=== PATIENT | female | born 1955 | race Caucasian/White ===

== ENCOUNTER 2018-01-28 14:37 | Inpatient (IN) | payer OTHER ==
[2018-01-28] MEDS ORDERED: BISACODYL 10 MG SUPP PR (16:30)
[2018-01-28] MEDS ORDERED: LACTULOSE 30ML CUP PO (16:30)
[2018-01-28] MEDS ORDERED: DEXTROSE 50% 50 ML SYRINGE IV ×2 (16:30)
[2018-01-28] MEDS ORDERED: MAGNESIUM HYDROXIDE 30ML CUP PO (16:30)
[2018-01-28] MEDS ORDERED: GLUCOSE GEL 15 GRAM TUBE BUCCAL (16:30)
[2018-01-28] MEDS ORDERED: ACETAMINOPHEN 325 MG TAB PO (16:30)
[2018-01-28] MEDS ORDERED: GLUCOSE GEL 15 GRAM TUBE PO ×2 (16:30)
[2018-01-28] MEDS ORDERED: GLUCAGON 1 MG INJ IM (16:30)
[2018-01-28 16:58] LABS: ADD UMIC YES; UR ASCORBIC ACID NEGATIVE (NEGATIVE); UR BILIRUBIN (Dip) NEGATIVE (NEGATIVE); UR BLOOD (Dip) 1+ mg/dL (NEGATIVE); UR CLARITY SLIGHTLY CLOUDY (CLEAR); UR COLOR YELLOW (YELLOW); UR GLUCOSE (Dip) NEGATIVE (NEGATIVE); UR KETONES (Dip) NEGATIVE (NEGATIVE); UR LEUKOCYTE ESTERASE (Dip) NEGATIVE Leu/ul (NEGATIVE); UR NITRITE (Dip) NEGATIVE (NEGATIVE); UR RBC 1 /HPF (0-5); UR SPECIFIC GRAVITY (Dip) 1.021 (1.003-1.030); UR SQUAMOUS EPITHELIAL CELL FEW /HPF (FEW); UR TOTAL PROTEIN (Dip) NEGATIVE (NEGATIVE); UR UROBILINOGEN (Dip) NEGATIVE (NEGATIVE); UR WBC 4 /HPF (0-5)
[2018-01-28] MEDS: Insulin NOVOLOG SS MILD Algorithm (SS with meals and bedtime) SC ×2 (17:05→20:58)
[2018-01-28] MEDS ORDERED: DIPHENHYDRAMINE 1%/ZINC 28.3 GM CR TOP ×2 (18:00)
[2018-01-28] MEDS: glipiZIDE 5 MG TAB PO (18:02)
[2018-01-28] MEDS: ATORVASTATIN 40 MG TAB PO (20:55)
[2018-01-28] MEDS: FAMOTIDINE 20 MG TAB PO (20:55)
[2018-01-28] MEDS: HYDROCORTISONE 1% 28 GM CR TOP (20:58)
[2018-01-28] MEDS: SENNA TAB PO (21:00)
[2018-01-28] MEDS: DOCUSATE SODIUM 100 MG CAP PO (21:00)
[2018-01-28] MEDS: DIPHENHYDRAMINE 25 MG CAP PO (21:39)
[2018-01-29] MEDS: ACCUCHECK AT 2AM (Patients on SS coverage) XX (02:00)
[2018-01-29 06:34] LABS: ADD MAN DIFF? NO
[2018-01-29 06:45] LABS: WHITE BLOOD COUNT 7.1 10^3/ul (4.8-10.8)
[2018-01-29 06:45] LABS: BASOPHIL # 0.1 10^3/ul (0.0-0.1); EOSINOPHILS # 0.5 10^3/ul (0.0-0.5); EOSINOPHILS % 6.6 % (0.0-7.0); HEMOGLOBIN 13.6 g/dl (12.0-16.0); LYMPHOCYTES # 2.8 10^3/ul (0.8-2.9); LYMPHOCYTES % 39.9 % (15.0-51.0); MEAN CORPUSCULAR HEMOGLOBIN 30.2 pg (29.0-33.0); MEAN CORPUSCULAR HGB CONC 33.2 g/dl (32.0-37.0); MEAN CORPUSCULAR VOLUME 90.9 fl (82.0-101.0); MEAN PLATELET VOLUME 10.1 fl (7.4-10.4); MONOCYTE # 0.7 10^3/ul (0.3-0.9); MONOCYTES % 9.2 % (0.0-11.0); NEUTROPHILS % 42.7 % (39.0-77.0); PLATELET COUNT 204 10^3/UL (140-415); RED BLOOD COUNT 4.51 10^6/ul (4.20-5.40); RED CELL DISTRIBUTION WIDTH 12.2 % (11.5-14.5)
[2018-01-29 07:05] LABS: ALANINE AMINOTRANSFERASE 49 IU/L (13-69); ALBUMIN 4.1 g/dl (3.3-4.9); ALBUMIN/GLOBULIN RATIO 1.17; ALKALINE PHOSPHATASE 83 IU/L (42-121); ANION GAP 16 (8-16); ASPARTATE AMINO TRANSFERASE 33 IU/L (15-46); BILIRUBIN,INDIRECT 1.1 mg/dl (0-1.1); BILIRUBIN,TOTAL 1.1 mg/dl (0.2-1.3); BLOOD UREA NITROGEN 26 mg/dl (7-20); CALCIUM 9.7 mg/dl (8.4-10.2); CARBON DIOXIDE 33 mmol/L (21-31); CHLORIDE 99 mmol/L (97-110); CREATININE 0.83 mg/dl (0.44-1.00); GLUCOSE 144 mg/dl (70-220); POTASSIUM 3.2 mmol/L (3.5-5.1); SODIUM 145 mmol/L (135-144); TOTAL PROTEIN 7.6 g/dl (6.1-8.1)
[2018-01-29] MEDS: Insulin NOVOLOG SS MILD Algorithm (SS with meals and bedtime) SC ×4 (07:27→21:00)
[2018-01-29] MEDS: glipiZIDE 5 MG TAB PO ×2 (07:27→17:45)
[2018-01-29] MEDS: HYDROCORTISONE 1% 28 GM CR TOP ×2 (09:04→21:00)
[2018-01-29] MEDS: DOCUSATE SODIUM 100 MG CAP PO ×2 (09:04→21:00)
[2018-01-29] MEDS: ASPIRIN 81 MG TAB PO (09:04)
[2018-01-29] MEDS: CHLORTHALIDONE 25 MG TAB PO (09:05)
[2018-01-29] MEDS: CLOPIDOGREL 75 MG TAB PO (09:05)
[2018-01-29] MEDS: FLUOXETINE 20 MG CAP PO (09:05)
[2018-01-29] MEDS: FAMOTIDINE 20 MG TAB PO ×2 (09:05→22:05)
[2018-01-29] MEDS: MULTIVITAMINS/MINERALS TAB PO (09:07)
[2018-01-29] MEDS: POTASSIUM CHLORIDE (SR) 20 MEQ TAB PO (10:12)
[2018-01-29] MEDS: SENNA TAB PO (21:00)
[2018-01-29] MEDS: ATORVASTATIN 40 MG TAB PO (22:05)
[2018-01-29] MEDS: DIPHENHYDRAMINE 25 MG CAP PO (22:35)
[2018-01-30] MEDS: ACCUCHECK AT 2AM (Patients on SS coverage) XX (02:00)
[2018-01-30] MEDS: Insulin NOVOLOG SS MILD Algorithm (SS with meals and bedtime) SC ×4 (08:52→21:00)
[2018-01-30] MEDS: glipiZIDE 5 MG TAB PO ×2 (08:55→18:07)
[2018-01-30] MEDS: HYDROCORTISONE 1% 28 GM CR TOP ×2 (09:00→21:00)
[2018-01-30] MEDS: FAMOTIDINE 20 MG TAB PO ×2 (09:00→21:02)
[2018-01-30] MEDS: DOCUSATE SODIUM 100 MG CAP PO ×2 (09:00→21:00)
[2018-01-30 10:08] LABS: ANION GAP 20 (8-16); BLOOD UREA NITROGEN 27 mg/dl (7-20); CALCIUM 10.1 mg/dl (8.4-10.2); CARBON DIOXIDE 28 mmol/L (21-31); CHLORIDE 99 mmol/L (97-110); CREATININE 0.75 mg/dl (0.44-1.00); GLUCOSE 204 mg/dl (70-220); POTASSIUM 3.8 mmol/L (3.5-5.1); SODIUM 143 mmol/L (135-144)
[2018-01-30] MEDS: ASPIRIN 81 MG TAB PO (12:56)
[2018-01-30] MEDS: FLUOXETINE 20 MG CAP PO (12:57)
[2018-01-30] MEDS: CLOPIDOGREL 75 MG TAB PO (12:58)
[2018-01-30] MEDS: MULTIVITAMINS/MINERALS TAB PO (12:58)
[2018-01-30] MEDS: CHLORTHALIDONE 25 MG TAB PO (12:58)
[2018-01-30] MEDS: SENNA TAB PO (21:00)
[2018-01-30] MEDS: ATORVASTATIN 40 MG TAB PO (21:02)
[2018-01-31] MEDS: ACCUCHECK AT 2AM (Patients on SS coverage) XX (02:00)
[2018-01-31] MEDS: glipiZIDE 5 MG TAB PO ×2 (08:52→17:37)
[2018-01-31] MEDS: FLUOXETINE 20 MG CAP PO (08:52)
[2018-01-31] MEDS: ASPIRIN 81 MG TAB PO (08:52)
[2018-01-31] MEDS: DOCUSATE SODIUM 100 MG CAP PO ×2 (08:52→20:34)
[2018-01-31] MEDS: MULTIVITAMINS/MINERALS TAB PO (08:52)
[2018-01-31] MEDS: CLOPIDOGREL 75 MG TAB PO (08:52)
[2018-01-31] MEDS: CHLORTHALIDONE 25 MG TAB PO (08:53)
[2018-01-31] MEDS: FAMOTIDINE 20 MG TAB PO ×2 (08:53→20:34)
[2018-01-31] MEDS: Insulin NOVOLOG SS MILD Algorithm (SS with meals and bedtime) SC ×4 (09:02→20:35)
[2018-01-31] MEDS: HYDROCORTISONE 1% 28 GM CR TOP ×2 (09:03→20:38)
[2018-01-31 09:15] LABS: ADD MAN DIFF? NO
[2018-01-31 09:18] LABS: BASOPHIL # 0.1 10^3/ul (0.0-0.1); BASOPHILS % 0.9 % (0.0-2.0); EOSINOPHILS # 0.4 10^3/ul (0.0-0.5); EOSINOPHILS % 4.2 % (0.0-7.0); HEMATOCRIT 42.7 % (37.0-47.0); HEMOGLOBIN 14.4 g/dl (12.0-16.0); LYMPHOCYTES # 2.9 10^3/ul (0.8-2.9); LYMPHOCYTES % 32.8 % (15.0-51.0); MEAN CORPUSCULAR HEMOGLOBIN 29.9 pg (29.0-33.0); MEAN CORPUSCULAR HGB CONC 33.7 g/dl (32.0-37.0); MEAN CORPUSCULAR VOLUME 88.8 fl (82.0-101.0); MEAN PLATELET VOLUME 10.4 fl (7.4-10.4); MONOCYTE # 0.7 10^3/ul (0.3-0.9); MONOCYTES % 7.7 % (0.0-11.0); NEUTROPHIL # 4.8 10^3/ul (1.6-7.5); NEUTROPHILS % 53.6 % (39.0-77.0); PLATELET COUNT 275 10^3/UL (140-415); RED BLOOD COUNT 4.81 10^6/ul (4.20-5.40)
[2018-01-31 09:46] LABS: ANION GAP 18 (8-16); BLOOD UREA NITROGEN 23 mg/dl (7-20); CALCIUM 10.1 mg/dl (8.4-10.2); CARBON DIOXIDE 29 mmol/L (21-31); CHLORIDE 101 mmol/L (97-110); CREATININE 0.78 mg/dl (0.44-1.00); GLUCOSE 178 mg/dl (70-220); MAGNESIUM 1.3 mg/dl (1.7-2.5); PHOSPHORUS 4.1 mg/dl (2.5-4.9); POTASSIUM 3.6 mmol/L (3.5-5.1); SODIUM 144 mmol/L (135-144)
[2018-01-31] MEDS: ATORVASTATIN 40 MG TAB PO (20:34)
[2018-01-31] MEDS: SENNA TAB PO (20:34)
[2018-02-01] MEDS: ACCUCHECK AT 2AM (Patients on SS coverage) XX (02:00)
[2018-02-01] MEDS: ASPIRIN 81 MG TAB PO (08:11)
[2018-02-01] MEDS: CHLORTHALIDONE 25 MG TAB PO (08:11)
[2018-02-01] MEDS: MULTIVITAMINS/MINERALS TAB PO (08:11)
[2018-02-01] MEDS: DOCUSATE SODIUM 100 MG CAP PO ×2 (08:11→20:35)
[2018-02-01] MEDS: CLOPIDOGREL 75 MG TAB PO (08:11)
[2018-02-01] MEDS: Insulin NOVOLOG SS MILD Algorithm (SS with meals and bedtime) SC ×4 (08:11→21:00)
[2018-02-01] MEDS: glipiZIDE 5 MG TAB PO ×2 (08:12→17:22)
[2018-02-01] MEDS: FLUOXETINE 20 MG CAP PO (08:12)
[2018-02-01] MEDS: FAMOTIDINE 20 MG TAB PO ×2 (08:12→20:38)
[2018-02-01] MEDS: HYDROCORTISONE 1% 28 GM CR TOP ×2 (08:14→20:50)
[2018-02-01] MEDS: ATORVASTATIN 40 MG TAB PO (20:36)
[2018-02-01] MEDS: SENNA TAB PO (20:37)
[2018-02-02] MEDS: ACCUCHECK AT 2AM (Patients on SS coverage) XX (02:00)
[2018-02-02] MEDS: glipiZIDE 5 MG TAB PO ×2 (07:57→17:05)
[2018-02-02] MEDS: Insulin NOVOLOG SS MILD Algorithm (SS with meals and bedtime) SC ×4 (08:02→21:00)
[2018-02-02] MEDS: HYDROCORTISONE 1% 28 GM CR TOP ×2 (09:00→21:00)
[2018-02-02] MEDS: DOCUSATE SODIUM 100 MG CAP PO ×2 (09:00→21:01)
[2018-02-02] MEDS: MULTIVITAMINS/MINERALS TAB PO (09:01)
[2018-02-02] MEDS: ASPIRIN 81 MG TAB PO (09:01)
[2018-02-02] MEDS: FLUOXETINE 20 MG CAP PO (09:01)
[2018-02-02] MEDS: CLOPIDOGREL 75 MG TAB PO (09:01)
[2018-02-02] MEDS: CHLORTHALIDONE 25 MG TAB PO (09:02)
[2018-02-02] MEDS: FAMOTIDINE 20 MG TAB PO ×2 (09:02→21:01)
[2018-02-02] MEDS: ATORVASTATIN 40 MG TAB PO (21:01)
[2018-02-02] MEDS: SENNA TAB PO (21:01)
[2018-02-03] MEDS: ACCUCHECK AT 2AM (Patients on SS coverage) XX (02:00)
[2018-02-03] MEDS: Insulin NOVOLOG SS MILD Algorithm (SS with meals and bedtime) SC ×4 (07:59→21:00)
[2018-02-03] MEDS: glipiZIDE 5 MG TAB PO ×2 (08:07→17:41)
[2018-02-03] MEDS: CHLORTHALIDONE 25 MG TAB PO (08:07)
[2018-02-03] MEDS: CLOPIDOGREL 75 MG TAB PO (08:07)
[2018-02-03] MEDS: ASPIRIN 81 MG TAB PO (08:07)
[2018-02-03] MEDS: FAMOTIDINE 20 MG TAB PO ×2 (08:08→20:45)
[2018-02-03] MEDS: DOCUSATE SODIUM 100 MG CAP PO ×2 (08:08→20:45)
[2018-02-03] MEDS: FLUOXETINE 20 MG CAP PO (08:08)
[2018-02-03 10:25] LABS: ADD UMIC NO; UR ASCORBIC ACID NEGATIVE (NEGATIVE); UR BACTERIA FEW /HPF (NONE SEEN); UR BILIRUBIN (Dip) NEGATIVE (NEGATIVE); UR BLOOD (Dip) NEGATIVE (NEGATIVE); UR CLARITY SLIGHTLY CLOUDY (CLEAR); UR COLOR YELLOW (YELLOW); UR GLUCOSE (Dip) NEGATIVE (NEGATIVE); UR KETONES (Dip) NEGATIVE (NEGATIVE); UR LEUKOCYTE ESTERASE (Dip) NEGATIVE Leu/ul (NEGATIVE); UR NITRITE (Dip) NEGATIVE (NEGATIVE); UR RBC 0 /HPF (0-5); UR SPECIFIC GRAVITY (Dip) 1.015 (1.003-1.030); UR SQUAMOUS EPITHELIAL CELL FEW /HPF (FEW); UR TOTAL PROTEIN (Dip) NEGATIVE (NEGATIVE); UR UROBILINOGEN (Dip) NEGATIVE (NEGATIVE); UR WBC 2 /HPF (0-5)
[2018-02-03] MEDS: LEVOFLOXACIN 500 MG TAB PO (12:53)
[2018-02-03] MEDS: MULTIVITAMINS/MINERALS TAB PO (12:59)
[2018-02-03] MEDS: HYDROCORTISONE 1% 28 GM CR TOP ×2 (12:59→21:00)
[2018-02-03] MEDS: SENNA TAB PO (20:45)
[2018-02-03] MEDS: ATORVASTATIN 40 MG TAB PO (20:45)
[2018-02-04] MEDS: ACCUCHECK AT 2AM (Patients on SS coverage) XX (02:00)
[2018-02-04] MEDS: LEVOFLOXACIN 500 MG TAB PO (06:23)
[2018-02-04] MEDS: Insulin NOVOLOG SS MILD Algorithm (SS with meals and bedtime) SC ×2 (07:46→11:30)
[2018-02-04] MEDS: glipiZIDE 5 MG TAB PO (07:47)
[2018-02-04] MEDS: CLOPIDOGREL 75 MG TAB PO (08:39)
[2018-02-04] MEDS: MULTIVITAMINS/MINERALS TAB PO (08:39)
[2018-02-04] MEDS: CHLORTHALIDONE 25 MG TAB PO (08:39)
[2018-02-04] MEDS: DOCUSATE SODIUM 100 MG CAP PO (08:39)
[2018-02-04] MEDS: ASPIRIN 81 MG TAB PO (08:39)
[2018-02-04] MEDS: FAMOTIDINE 20 MG TAB PO (08:39)
[2018-02-04] MEDS: FLUOXETINE 20 MG CAP PO (08:39)
[2018-02-04] MEDS: HYDROCORTISONE 1% 28 GM CR TOP (08:40)
== END 2018-02-04 12:33 | disposition home or self-care (01) | DRG 57 ==
LOC: VRC 14:37
PROC: F07Z5ZZ Bed Mobility Treatment (ICD-10-PCS; principal; 2018-01-29)
PROC: F07Z8ZZ Transfer Training Treatment (ICD-10-PCS; 2018-01-29)
PROC: F07Z9ZZ Gait Training/Functional Ambulation Treatment (ICD-10-PCS; 2018-01-29)
PROC: F08Z2ZZ Grooming/Personal Hygiene Treatment (ICD-10-PCS; 2018-01-29)
PROC: F08Z1ZZ Dressing Techniques Treatment (ICD-10-PCS; 2018-01-29)
PROC: F08Z1ZZ Dressing Techniques Treatment (ICD-10-PCS; 2018-01-29)
PROC: F08Z0ZZ Bathing/Showering Techniques Treatment (ICD-10-PCS; 2018-01-29)
DX: I69.354 Hemiplegia and hemiparesis following cerebral infarction affecting left non-dominant side (principal); N39.0 Urinary tract infection, site not specified; I10 Essential (primary) hypertension; E11.9 Type 2 diabetes mellitus without complications; F32.9 Major depressive disorder, single episode, unspecified; B95.2 Enterococcus as the cause of diseases classified elsewhere; E87.6 Hypokalemia; Z16.21 Resistance to vancomycin; Z96.653 Presence of artificial knee joint, bilateral
CPT/HCPCS: 80048; 80053; 81001; 81003; 82962; 83735; 84100; 85025; 87081; 87086; 92507; 97110; 97112; 97116; 97150; 97163; 97167; 97530; 97535; 97542